=== PATIENT | female | born 1990 | race Hispanic/Latino ===

== ENCOUNTER 2017-09-12 16:41 | Emergency (ER) | payer OTHER ==
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
--- NOTE | 2017-09-12 17:53 | RADIOLOGY REPORT ---
EXAMINATION: XR HAND, RIGHT CLINICAL INFORMATION: Right third MCP joint pain. COMPARISON: None TECHNIQUE: PA, lateral, and oblique views of the right hand. FINDINGS: The bones and soft tissues are normal. No fracture. Alignment is anatomic. Joint spaces are maintained. No erosions or soft tissue calcifications. IMPRESSION: Normal right hand.
[2017-09-12] MEDS ORDERED: MOBIC15 M1 PO (17:58)
[2017-09-12 18:07] VITALS: BP 136/88
== END 2017-09-12 18:07 ==
LOC: ERH 16:41
DX: S20.219A Contusion of unspecified front wall of thorax, initial encounter (principal); S20.319A Abrasion of unspecified front wall of thorax, initial encounter; M79.641 Pain in right hand; V49.40XA Driver injured in collision with unspecified motor vehicles in traffic accident, initial encounter; Y92.9 Unspecified place or not applicable
CPT/HCPCS: 71046; 73130-RT; 81025; 93005; 93010